=== PATIENT | male | born 1985 | race Caucasian/White ===

== ENCOUNTER 2021-07-16 13:17 | Emergency (ER) | payer BC ==
[2021-07-16 14:14] VITALS: BP 122/80; PULSE 71; RESP 18; TEMP 98.5
[2021-07-16 15:29] LABS: Basophils # (A) 0.1 k/uL (0-0.2); Basophils % (A) 1 %; Eosinophils # (A) 0.2 k/uL (0-0.7); Eosinophils % (A) 3 %; HCT 49.1 % (39.0-53.0); HGB 16.5 gm/dL (13.0-17.5); Lymphocytes # (A) 2.4 k/uL (1.0-4.8); Lymphocytes % (A) 30 %; MCH 29.4 pg (25.0-35.0); MCHC 33.5 g/dL (31.0-37.0); MCV 87.6 fL (80.0-100.0); Mean Platelet Volume 7.2; Monocytes # (A) 0.6 k/uL (0-1.0); Monocytes % (A) 7 %; Neutrophils # (A) 4.5 k/uL (1.3-7.7); Neutrophils % (A) 57 %; Platelet Count 221 k/uL (150-450); RBC 5.61 m/uL (4.30-5.90); RDW 13.5 % (11.5-15.5); WBC 7.9 k/uL (3.8-10.6)
[2021-07-16 15:37] LABS: Partial Thromboplastin Time 23.2 sec (22.0-30.0); Prothrombin Time 11.1 sec (9.0-12.0)
[2021-07-16 15:43] LABS: ALT 60 U/L (4-49); AST 45 U/L (17-59); African American GFR (CKD) >90 (>60 ml/min/1.73 sqM); Albumin 4.6 g/dL (3.5-5.0); Alkaline Phosphatase 42 U/L (38-126); Anion Gap 9 mmol/L; Blood Urea Nitrogen 12 mg/dL (9-20); Calcium 9.5 mg/dL (8.4-10.2); Carbon Dioxide 25 mmol/L (22-30); Chloride 105 mmol/L (98-107); Glucose 84 mg/dL (74-99); Non-African American GFR(CKD) >90 (>60 ml/min/1.73 sqM); Potassium 4.3 mmol/L (3.5-5.1); Sodium 139 mmol/L (137-145); Total Bilirubin 1.2 mg/dL (0.2-1.3); Total Protein 7.5 g/dL (6.3-8.2)
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
== END 2021-07-16 17:04 | disposition home or self-care (01) ==
LOC: EC 13:17
DX: S30.1XXA Contusion of abdominal wall, initial encounter (principal); Z87.891 Personal history of nicotine dependence; V86.95XA Unspecified occupant of 3- or 4- wheeled all-terrain vehicle (ATV) injured in nontraffic accident, initial encounter; Y92.410 Unspecified street and highway as the place of occurrence of the external cause
CPT/HCPCS: 36415; 80053; 85025; 85610; 85730; 74177; 99284; Q9967

== ENCOUNTER 2021-09-10 12:54 | Emergency (ER) | payer BC ==
[2021-09-10] MEDS ORDERED: LIDOCAINE 1% INJ 10MG/ML (20 ML MDV) SQ ONE (13:09)
[2021-09-10] MEDS ORDERED: KETOROLAC 15 MG/ML 1 ML VIAL IVP STA (13:09)
[2021-09-10] MEDS ORDERED: HYDROmorphone 1 MG/ML 1 ML SYRINGE IVP STA (13:09)
[2021-09-10] MEDS ORDERED: DIPH,PERTUS(ACELL)TETVAC-LF 0.5 ML VIAL IM ONE (13:10)
[2021-09-10 13:36] LABS: Partial Thromboplastin Time 23.6 sec (22.0-30.0)
--- NOTE | 2021-09-10 13:36 | XR ---
EXAMINATION TYPE: XR hand limited LT DATE OF EXAM: 09/10/2021 COMPARISON: NONE HISTORY: 36 years Male. STUDY INDICATION GIVEN: injury second third finger . TECHNIQUE: 2 views of the hand IMPRESSION: There is an acute comminuted intra-articular fracture of the distal phalanx of the second finger (ind ex). The proximal fracture fragment is slightly displaced toward the radial side. The distal fractur e fragment slightly displaced dorsally. There is subcutaneous air in the radial aspect of the second finger at the level of the metacarpal ph alangeal joint. There are 2 well-corticated fragments adjacent to the ulnar styloid which may be related to remote av ulsion. There is a sclerotic band in the distal radial diaphysis which may be indicative of remote injury.
[2021-09-10] MEDS ORDERED: BACITRACIN OINT 1 EACH PACKET TOPICAL STA (13:45)
[2021-09-10 13:46] LABS: ALT 55 U/L (4-49); AST 42 U/L (17-59); African American GFR (CKD) >90 (>60 ml/min/1.73 sqM); Albumin 4.7 g/dL (3.5-5.0); Alkaline Phosphatase 44 U/L (38-126); Anion Gap 12 mmol/L; Blood Urea Nitrogen 10 mg/dL (9-20); Calcium 9.3 mg/dL (8.4-10.2); Carbon Dioxide 22 mmol/L (22-30); Chloride 105 mmol/L (98-107); Glucose 119 mg/dL (74-99); Non-African American GFR(CKD) >90 (>60 ml/min/1.73 sqM); Potassium 3.7 mmol/L (3.5-5.1); Sodium 139 mmol/L (137-145); Total Bilirubin 1.1 mg/dL (0.2-1.3); Total Protein 7.5 g/dL (6.3-8.2)
--- NOTE | 2021-09-10 14:08 | ED ---
General Adult HPI - General Chief complaint: Extremity Injury, Upper Stated complaint: Lt fingers are crushed Time Seen by Provider: 09/10/21 13:04 Source: patient, RN notes reviewed, old records reviewed Mode of arrival: ambulatory Limitations: no limitations - History of Present Illness Initial comments: 36 -year-old male presenting with crush injury to the left index finger. Patient was splitting wood, caught his left index finger between the log and the splinter. No other injury reported. Last tetanus was approximately 8 years ago. Patient is otherwise healthy. - Related Data Previous Rx's Medication Instructions Recorded Cephalexin [Keflex] 500 mg PO Q6HR 5 Days #20 cap 09/10/21 Ibuprofen [Motrin] 800 mg PO Q8H PRN #30 tab 09/10/21 Allergies Allergy/AdvReac Type Severity Reaction Status Date / Time No Known Allergies Allergy Verified 09/10/21 12:58 Review of Systems ROS Statement: Those systems with pertinent positive or pertinent negative responses have been documented in the HPI. ROS Other: All systems not noted in ROS Statement are negative. Past Medical History Past Medical History: No Reported History History of Any Multi-Drug Resistant Organisms: None Reported Past Surgical History: Orthopedic Surgery Past Psychological History: No Psychological Hx Reported Smoking Status: Former smoker Past Alcohol Use History: Occasional Past Drug Use History: None Reported General Exam Limitations: no limitations General appearance: alert, in distress Head exam: Present: atraumatic, normocephalic Eye exam: Present: normal appearance, PERRL ENT exam: Present: normal exam Respiratory exam: Present: normal lung sounds bilaterally. Absent: respiratory distress, wheezes Cardiovascular Exam: Present: regular rate, normal rhythm GI/Abdominal exam: Present: soft. Absent: distended, tenderness, guarding Extremities exam: Present: other (Left upper extremity, there is this crush injury with ecchymosis of the distal phalanx second digit. Multiple lacerations, deformity. No cap Refill.) Neurological exam: Present: alert, oriented X3 Psychiatric exam: Present: normal affect, normal mood Skin exam: Present: warm, dry Course Vital Signs 09/10/21 12:59 Temperature 98 F Pulse Rate 103 H Respiratory 22 Rate Blood Pressure 117/77 O2 Sat by Pulse 100 Oximetry Procedures - Laceration Laceration #1 Consent Obtained: verbal consent Indication: laceration Site: hand Size (cm): 6 Description: flap, avulsion, irregular, contaminated Depth: involves muscle layer, [id number] Anesthetic Used: lidocaine 1% Anesthesia Technique: nerve block Amount (mls): 5 Pre-repair: wound explored, irrigated extensively Type of Sutures: nylon Size of Sutures: 5-0 Number of Sutures: 9 Technique: simple, interrupted Patient Tolerated Procedure: well - Nerve Block Consent Obtained: verbal consent Local Anesthetic Used: Lidocaine 1% Amount of anesthesia used: 4 Side: left Nerve Blocks: digital Procedure Successful: Yes Complications: none Patient Tolerated Procedure: well - Orthopedic Splinting/Casting Injury #1 Side: left Upper Extremity Injury Location: hand, finger Upper Extremity Immobilizer: shawna tape, finger (other), synthetic pre-padded splint, fiberglass cast Medical Decision Making - Medical Decision Making 36-year-old male who had presented with crush injury to the left index finger. The tissue on initial evaluation appears nonviable. It is sandoval, cyanotic and ecchymotic. There is multiple laceration with deformity. There is no Refill. The x-ray shows moderately displaced distal phalanx fracture. This opened. He is washed out extensively in the emergency department. Antibiotics are initiated as well as tetanus is updated. The lacerations are repaired with nylon suture. The patient is advised about the possible non-viability of this distal phalanx and the need for possible revision. Also there is a high risk of infection given the mechanism of injury and the devitalized tissue. I did discuss this at length with the patient. Case discussed with darío richards for orthopedics will arrange for close outpatient follow-up with his surgery for wound reevaluation and the need for possible revision. - Lab Data Result diagrams: 09/10/21 13:20 Lab Results 09/10/21 09/10/21 Range/Units 13:20 13:20 PT 11.0 (9.0-12.0) sec INR 1.0 (<1.2) APTT 23.6 (22.0-30.0) sec Sodium 139 (137-145) mmol/L Potassium 3.7 (3.5-5.1) mmol/L Chloride 105 (98-107) mmol/L Carbon Dioxide 22 (22-30) mmol/L Anion Gap 12 mmol/L BUN 10 (9-20) mg/dL Creatinine 0.99 (0.66-1.25) mg/dL Est GFR (CKD-EPI)AfAm >90 (>60 ml/min/1.73 sqM) Est GFR (CKD-EPI)NonAf >90 (>60 ml/min/1.73 sqM) Glucose 119 H (74-99) mg/dL Calcium 9.3 (8.4-10.2) mg/dL Total Bilirubin 1.1 (0.2-1.3) mg/dL AST 42 (17-59) U/L ALT 55 H (4-49) U/L Alkaline Phosphatase 44 (38-126) U/L Total Protein 7.5 (6.3-8.2) g/dL Albumin 4.7 (3.5-5.0) g/dL Disposition Clinical Impression: Crush injury, Open fracture of distal phalanx Disposition: HOME SELF-CARE Condition: Good Instructions (If sedation given, give patient instructions): Laceration (ED), Finger Fracture (ED) Prescriptions: Cephalexin [Keflex] 500 mg PO Q6HR 5 Days #20 cap Ibuprofen [Motrin] 800 mg PO Q8H PRN #30 tab PRN Reason: Pain Is patient prescribed a controlled substance at d/c from ED?: No Referrals: None,Stated [Primary Care Provider] - 1-2 days Kelvin Vivar DO [Doctor of Osteopathic Medicine] - 1-2 days Time of Disposition: 14:13
[2021-09-10 14:09] LABS: Basophils # (A) 0.1 k/uL (0-0.2); Basophils % (A) 1 %; Eosinophils # (A) 0.2 k/uL (0-0.7); Eosinophils % (A) 2 %; HCT 49.8 % (39.0-53.0); HGB 17.8 gm/dL (13.0-17.5); Hyperchromasia Slight; Lymphocytes # (A) 2.7 k/uL (1.0-4.8); Lymphocytes % (A) 34 %; MCH 30.5 pg (25.0-35.0); MCHC 35.8 g/dL (31.0-37.0); MCV 85.2 fL (80.0-100.0); Mean Platelet Volume 7.3; Monocytes # (A) 0.4 k/uL (0-1.0); Monocytes % (A) 5 %; Neutrophils # (A) 4.6 k/uL (1.3-7.7); Neutrophils % (A) 57 %; Platelet Count 248 k/uL (150-450); RBC 5.85 m/uL (4.30-5.90); RDW 13.8 % (11.5-15.5)
[2021-09-10 14:34] VITALS: BP 116/76; PULSE 92; RESP 20; TEMP 98
[2021-09-10 15:11] LABS: Reactive Lymphocytes Present
== END 2021-09-10 14:33 | disposition home or self-care (01) ==
LOC: EC 12:54
DX: S62.631B Displaced fracture of distal phalanx of left index finger, initial encounter for open fracture (principal); W23.1XXA Caught, crushed, jammed, or pinched between stationary objects, initial encounter; Z87.891 Personal history of nicotine dependence
CPT/HCPCS: 99284; 96365; 96375 ×2; 90471; 12032; 36415; 80053; 85025; 85610; 85730; 73120; 90715; J0690; J2001; J1170; J1885

== ENCOUNTER 2022-05-08 22:45 | Emergency (ER) | payer BC ==
[2022-05-08 22:56] VITALS: TEMP 98.3
--- NOTE | 2022-05-08 23:49 | XR ---
EXAMINATION TYPE: XR elbow complete LT DATE OF EXAM: 05/08/2022 COMPARISON: NONE HISTORY: Pain TECHNIQUE: 3 views FINDINGS: I see no fracture nor dislocation. Elbow joint spaces are normal. No sign of elbow joint ef fusion. IMPRESSION: Negative left elbow exam.
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
[2022-05-09 00:26] VITALS: BP 116/56; PULSE 69; RESP 16
== END 2022-05-09 00:26 | disposition home or self-care (01) ==
LOC: EC 22:45
DX: S53.402A Unspecified sprain of left elbow, initial encounter (principal); Z87.891 Personal history of nicotine dependence; X50.9XXA Other and unspecified overexertion or strenuous movements or postures, initial encounter
CPT/HCPCS: 99283

== ENCOUNTER 2022-07-06 14:08 | Emergency (ER) | payer BC ==
[2022-07-06 14:34] VITALS: BP 123/82; PULSE 84; RESP 20; TEMP 98.5
[2022-07-06] MEDS ORDERED: LIDOCAINE 1% INJ 10MG/ML (20 ML MDV) SQ ONE (14:56)
--- NOTE | 2022-07-06 15:58 | ED ---
Wound/Laceration HPI - General Chief Complaint: Wound/Laceration Stated Complaint: right finger cut Time Seen by Provider: 07/06/22 14:48 Source: patient, RN notes reviewed Mode of arrival: ambulatory Limitations: no limitations - History of Present Illness Initial Comments: This is a 37-year-old male who presents to the emergency department for a lacera tion to the right index finger. Patient states that he acquired this when doing yard work. His tetanus status is up-to-date. Pain is well controlled at this time. Denies any fevers, chills, sore throat, cough, dyspnea, chest pain, palpitations, abdominal pain, nausea, vomiting, diarrhea, back pain, or headaches. Location: other (right index finger) Place: home Patient Tetanus UTD: Yes Context: accidental - Related Data Previous Rx's Medication Instructions Recorded Cephalexin [Keflex] 500 mg PO Q6HR 5 Days #20 cap 09/10/21 Ibuprofen [Motrin] 800 mg PO Q8H PRN #30 tab 09/10/21 Allergies Allergy/AdvReac Type Severity Reaction Status Date / Time No Known Allergies Allergy Verified 09/10/21 14:26 Review of Systems ROS Statement: Those systems with pertinent positive or pertinent negative responses have been documented in the HPI. ROS Other: All systems not noted in ROS Statement are negative. Past Medical History Past Medical History: No Reported History History of Any Multi-Drug Resistant Organisms: None Reported Past Surgical History: Orthopedic Surgery Past Psychological History: No Psychological Hx Reported Smoking Status: Former smoker Past Alcohol Use History: Occasional Past Drug Use History: None Reported General Exam Limitations: no limitations General appearance: alert, in no apparent distress Head exam: Present: atraumatic, normocephalic, normal inspection Respiratory exam: Present: normal lung sounds bilaterally. Absent: respiratory distress, wheezes, rales, rhonchi, stridor Cardiovascular Exam: Present: regular rate, normal rhythm, normal heart sounds. Absent: systolic murmur, diastolic murmur, rubs, gallop, clicks Neurological exam: Present: alert, oriented X3, CN II-XII intact Psychiatric exam: Present: normal affect, normal mood Skin exam: Present: other (3 cm laceration to the dorsal aspect of the right index finger adjacent to the PIP joint.) Course Vital Signs 07/06/22 14:31 Temperature 98.5 F Pulse Rate 84 Respiratory 20 Rate Blood Pressure 123/82 O2 Sat by Pulse 99 Oximetry Procedures - Laceration Laceration #1 Consent Obtained: verbal consent Indication: laceration Site: other (right index finger) Size (cm): 3 Description: linear Depth: simple, single layer Anesthetic Used: lidocaine 1% Anesthesia Technique: local infiltration Amount (mls): 3 Size of Sutures: 4-0 Number of Sutures: 6 Technique: simple, interrupted Medical Decision Making - Medical Decision Making This is a 37-year-old male who presents to the emergency department for a laceration to the right index finger. This was repaired with sutures. Patient's tetanus status is up-to-date. He is instructed to return in 7-10 days for suture removal. Advised [id number] ibuprofen and Tylenol as needed for pain relief. Return precautions reviewed in depth, the patient is instructed to return to the emergency department with any new, worsening, or concerning symptoms. Patient verbalized understanding. This case was discussed in detail with the attending ED physician. Presentation, findings, and treatment plan discussed in detail as well. Disposition Clinical Impression: Laceration Disposition: HOME SELF-CARE Instructions (If sedation given, give patient instructions): Care For Your Stitches (ED) Additional Instructions: Return to the emergency department with any new, worsening, or concerning symptoms and in 7-10 days for removal of your stitches. Alternate with ibuprofen and Tylenol as needed for pain relief. Is patient prescribed a controlled substance at d/c from ED?: No Referrals: None,Stated [Primary Care Provider] - 1-2 days
== END 2022-07-06 16:34 | disposition home or self-care (01) ==
LOC: EC 14:08
DX: S61.210A Laceration without foreign body of right index finger without damage to nail, initial encounter (principal); Z87.891 Personal history of nicotine dependence; W26.8XXA Contact with other sharp object(s), not elsewhere classified, initial encounter
CPT/HCPCS: 99282; 12002; J2001

== ENCOUNTER 2022-11-11 22:40 | Emergency (ER) | payer BC ==
[2022-11-11 22:44] VITALS: BP 130/82; PULSE 79; RESP 18; TEMP 98.1
[2022-11-11] MEDS ORDERED: AMOXIC-POT CLAV 875-125MG 1 EACH TAB PO STA (23:16)
--- NOTE | 2022-11-11 23:41 | ED ---
Animal Bite HPI - General Chief Complaint: Animal Bite Stated Complaint: Dog bite Time Seen by Provider: 11/11/22 23:09 Source: patient Mode of arrival: ambulatory Limitations: no limitations - History of Present Illness Initial Comments: This patient is a 37-year-old man who is here to have evaluation of dog bite injury to right hand. Patient states that he was attempting to break up dogs that were fighting and the dog bit him to the right hand. He indicates the right thenar eminence. He states that there is a little bit of pain, main complaint is of stiffness. He is not having weakness or numbness of the hand. Patient's last tetanus shot less than year ago. MD Complaint: animal bite Onset/Timin -: hour(s) Right: Hand Animal: dog Description: household pet Mechanism: bite Pain Description: dull Context: animals fighting Associated Symptoms: none Treatments Prior to Arrival: pressure - Related Data Patient Tetanus UTD: Yes Previous Rx's Medication Instructions Recorded Cephalexin [Keflex] 500 mg PO Q6HR 5 Days #20 cap 09/10/21 Ibuprofen [Motrin] 800 mg PO Q8H PRN #30 tab 09/10/21 Amoxic-Pot Clav 875-125Mg 1 tab PO Q12HR 1 Days #14 tab 11/12/22 [Augmentin 875-125] Allergies Allergy/AdvReac Type Severity Reaction Status Date / Time No Known Allergies Allergy Verified 11/11/22 22:44 Review of Systems ROS Statement: Those systems with pertinent positive or pertinent negative responses have been documented in the HPI. ROS Other: All systems not noted in ROS Statement are negative. Constitutional: Denies: fever Musculoskeletal: Reports: as per HPI, joint swelling, arthralgia Skin: Reports: as per HPI Neurological: Denies: weakness, numbness, paresthesias Hematological/Lymphatic: Denies: easy bleeding Past Medical History Past Medical History: No Reported History History of Any Multi-Drug Resistant Organisms: None Reported Past Surgical History: Orthopedic Surgery Past Psychological History: No Psychological Hx Reported Smoking Status: Never smoker Past Alcohol Use History: Occasional, Rare Past Drug Use History: None Reported General Exam Limitations: no limitations General appearance: alert, in no apparent distress Right Elbow exam: Present: normal inspection, full ROM. Absent: tenderness, swelling Forearm Wrist exam: Present: normal inspection, full ROM. Absent: tenderness, swelling Hand Wrist exam: Present: full ROM, tenderness, swelling, other (Patient has puncture wound to the right thenar eminence. It is not overlying the joint.). Absent: normal inspection, ecchymosis, deformity, crepitus, dislocation, amputation, nail avulsion, subungual hematoma Neuro motor exam: Present: wrist extension intact, thumb opposition intact, thumb IP flexion intact, thumb adduction intact, fingers 2-5 abduction intact Neurosensory exam: Present: 2-point discrimination, radial nerve intact, ulnar nerve intact, median nerve intact Vascular: Present: normal capillary refill. Absent: vascular compromise, pulse deficit radial art, pulse deficit ulnar art, pulse deficit brachial art Skin exam: Present: warm, dry, normal color, other (Puncture wound right thenar eminence). Absent: rash Course Vital Signs 11/11/22 22:41 Temperature 98.1 F Pulse Rate 79 Respiratory 18 Rate Blood Pressure 130/82 O2 Sat by Pulse 98 Oximetry Medical Decision Making - Medical Decision Making This patient is a 37-year-old man presenting to have evaluation of dog bite to the hand. On physical exam, function is intact, there is no hint of neurologic or arterial injury. X-ray of the hand is obtained, which I interpreted as not showing any foreign body or acute bony injury. Patient is started on antibiotics and will continue course as outpatient. Wound is cleansed. Discussed appropriate wound care, appropriate follow-up care, and return parameters. Was pt. sent in by a medical professional or institution? @ -no Did you speak to anyone other than the patient for history? @ -[No Did you review nursing and triage notes? @ -[agree Were old charts reviewed? @ -[No Differential Diagnosis? @ -[Differential Dizziness: Differential diagnosis included laceration/puncture wound, acute bony injury, acute vascular injury, acute nerve injury, amongst other etiologies EKG interpreted by me (3pts min.)? @ -[ X-rays interpreted by me (1pt min.)? @ -See chart CT interpreted by me (1pt min.)? @ - U/S interpreted by me (1pt. min.)? @ -[none] What testing was considered but not performed? (CT, X-rays, U/S, labs)? Why? @ [ What meds were considered but not given? Why? @ -[none] Did you discuss the management of the patient with other professionals? @ -[No Did you reconcile home meds? @ -[none] Was smoking cessation discussed for >3mins.? @ -[none] Was critical care preformed (if so, how long)? @ -[none] Were there social determinants of health that impacted care today? How? (Homelessness, low income, unemployed, alcoholism, drug addiction, transportation, low edu. Level, literacy, decrease access to med. care, snf, rehab)? @ -[No Was there de-escalation of care discussed even if they declined? (Discuss DNR or withdrawal of care, Hospice)? @ -[No What co-morbidities impacted this encounter? (DM, HTN, Smoking, COPD, CAD, Canc er, CVA, Hep., AIDS, mental health diagnosis, sleep apnea, morbid obesity)? @ -[None Was patient admitted / discharged? @ -[Discharged Undiagnosed new problem with uncertain prognosis? @ -[none] Drug Therapy requiring intensive monitoring for toxicity (Heparin, Nitro, Insulin, Cardizem)? @ -[none] Were any procedures done? @ -[none] Diagnosis/symptom? @ -[1. Acute dog bite, uncomplicated Acute, or Chronic, or Acute on Chronic? @ -[Acute Uncomplicated (without systemic symptoms) or Complicated (systemic symptoms)? @ -[Uncomplicated Side effects of treatment? @ -[none] Exacerbation, Progression, or Severe Exacerbation] @ -[no] Poses a threat to life or bodily function? @ -[no] Disposition Clinical Impression: Dog bite Disposition: HOME SELF-CARE Condition: Good Instructions (If sedation given, give patient instructions): Animal Bite (ED) Prescriptions: Amoxic-Pot Clav 875-125Mg [Augmentin 875-125] 1 tab PO Q12HR 1 Days #14 tab Is patient prescribed a controlled substance at d/c from ED?: No Referrals: None,Stated [Primary Care Provider] - 1-2 days
--- NOTE | 2022-11-11 23:53 | XR ---
EXAMINATION TYPE: XR hand complete RT DATE OF EXAM: 11/11/2022 COMPARISON: NONE HISTORY: Pain. Dog bite TECHNIQUE: 3 views FINDINGS: Metacarpals are intact. Fingers are intact. I see no fracture nor dislocation. Joint spaces are fairly normal. IMPRESSION: Negative right hand exam. No fracture.
== END 2022-11-12 00:22 | disposition home or self-care (01) ==
LOC: EC 22:40
DX: S61.451A Open bite of right hand, initial encounter (principal); W54.0XXA Bitten by dog, initial encounter
CPT/HCPCS: 99283